=== PATIENT | male | born 1975 | race African-American/Black ===

== ENCOUNTER → 2018-01-21 | Outpatient (CLI) | payer OTHER ==
--- NOTE | 2018-01-21 15:30 | RAD ---
EXAM: Right hip and pelvis, 3 views. HISTORY: Pain. COMPARISON: None. FINDINGS: A frontal view the pelvis and 2 views of the right hip are obtained. There is no fracture, dislocation or subluxation. There is marginal femoral head spurring. There is decreased femoral head neck offset suggesting chronic hip impingement. IMPRESSION: 1. Mild bilateral hip osteoarthritis and decreased femoral head-neck offset suggesting chronic impingement. 2. No acute osseous finding. Electronically signed by: Karen Becerra MD (01/21/2018 3:27 PM) [place] [id number]
== END | disposition home or self-care (01) ==
LOC: RAD 13:22
PROVIDERS: ATTEND Orthopaedic Surgery Sports Medicine
DX: M16.11 Unilateral primary osteoarthritis, right hip (principal); M76.891 Other specified enthesopathies of right lower limb, excluding foot
CPT/HCPCS: 73502